=== PATIENT | male | born 1995 | race Caucasian/White ===

== ENCOUNTER 2018-06-06 09:48 | Emergency (ER) | payer OTHER ==
[2018-06-06 10:10] VITALS: BP 113/61
--- NOTE | 2018-06-06 12:27 | UC ---
Laceration HPI - HPI Summary HPI Summary: 22 y/o male presents to the urgent care c/o Rt ring finger laceration s/p weight lifting and dropping a 40lb weight on his finger yesterday around 1500pm yesterday. Pt reports pain is mild 2/10 w/ movement. Bleeding stopped w/ pressure yesterday. However his mother told him to come to the clinic since he probably need sutures. Pt can move finger w/o any difficulty. Pt is UTD w/ Tetanus vaccine. Pt denies numbness or tingling sensation over the hand or finger,fever, SOB, chest pain, abdominal pain, N/V/d. - History Of Current Complaint Chief Complaint: UCLaceration Stated Complaint: FINGER LAC Time Seen by Provider: 06/06/18 12:16 Hx Obtained From: Patient Laceration Location: Finger - RT ring finger Mechanism Of Injury: Sharp Trauma Onset/Duration: Sudden Onset, Lasting Hours - 12 hrs Severity: Mild Pain Intensity: 2 Pain Scale Used: 0-10 Numeric Aggravating Factors: Movement, Other: - touch Related History: Dominant Hand Right - Allergies/Home Medications Allergies/Adverse Reactions: Allergies Allergy/AdvReac Type Severity Reaction Status Date / Time No Known Allergies Allergy Verified 06/06/18 10:10 Home Medications: Home Medications NK [No Home Medications Reported] 06/06/18 [History Confirmed 06/06/18] PMH/Surg Hx/FS Hx/Imm Hx Previously Healthy: Yes - Pt denies PMHX - Surgical History Surgical History: Yes Surgery Procedure, Year, and Place: APPENDECTOMY - Family History Known Family History: Positive: None - Pt denies FmHX - Social History Occupation: Student Lives: With Family Alcohol Use: None Substance Use Type: None Smoking Status (MU): Never Smoked Tobacco - Immunization History Vaccination Up to Date: Yes Review of Systems All Other Systems Reviewed And Are Negative: Yes Constitutional: Positive: Negative Skin: Positive: Bruising - Rt ring finger, Other - laceration of Rt ring finger s/p a weight fell on his finger Eyes: Positive: Negative ENT: Positive: Negative Respiratory: Positive: Negative Cardiovascular: Positive: Negative Gastrointestinal: Positive: Negative Genitourinary: Positive: Negative Motor: Positive: Negative Neurovascular: Positive: Negative Musculoskeletal: Positive: Other: - Rt ring finger pain s/p laceration Neurological: Positive: Negative Psychological: Positive: Negative Is Patient Immunocompromised?: No Physical Exam - Summary Physical Exam Summary: Vital Signs Reviewed: Yes General: well developed, well nourished male sitting in the examining table w/o any apparent distress Eye Exam: Normal Eyes: Positive: Conjunctiva Clear - PERRLA, EOMI, fundi grossly normal ENT: Positive: Normal ENT inspection, Hearing grossly normal, Pharynx normal, TMs normal Neck: Positive: Supple, Nontender, No Lymphadenopathy Respiratory: Positive: Chest non-tender, Lungs clear, Normal breath sounds, No respiratory distress Cardiovascular: Positive: RRR, No Murmur, Pulses Normal, Brisk Capillary Refill Abdomen Description: Positive: Nontender, No Organomegaly, Soft. Negative: CVA Tenderness (R), CVA Tenderness (L) Bowel Sounds: Positive: Present Musculoskeletal: Positive: Strength Intact, ROM Intact, No Edema Neurological: Positive: Alert, Muscle Tone Normal Psychological Exam: Normal Skin: Positive:Medial aspect of the Rt 4th proximal phalanx with a linear superficial laceration about 1.8cm in size triangular in shape, bleeding, a black FB removed from the laceration. mild tenderness to palpation, mild ecchymosis around phalnx. FROM of RT hand and fingers, sensation intact, capillary refill brisk, and pulses WNL. Triage Information Reviewed: Yes Vital Signs: Initial Vital Signs Temp 98 F 06/06/18 10:08 Pulse 65 06/06/18 10:08 Resp 16 06/06/18 10:08 BP 113/61 06/06/18 10:08 Pulse Ox 100 06/06/18 10:08 Laceration Repair - Laceration Repair 1 Description: Irregular - laceration on the medial aspect of the Rt 4th phalanx triangular in shape Laceration Size After Repair: Length (cm) - 1.8 cm Modified For Repair: No Type Injection: Local Anesthesia Used: 1.0% Lido - Digital block at the base of the Rt 4th phalanx w / 2ml Cleansing Completed Via Routine Prep: Yes Irrigation With Pressure Irrigation Device: Yes Closure Method: Single Layer Suture Of: Skin, SQ Suture Type: Nylon Laceration Course/Dx - Course/Dx Course Of Treatment: 22 y/o male presents to the urgent care c/o Rt ring finger laceration s/p weight lifting and dropping a 40lb weight on his finger yesterday around 1500pm yesterday. Pt reports pain is mild 2/10 w/ movement. Bleeding stopped w/ pressure yesterday. However his mother told him to come to the clinic since he probably need sutures. Pt can move finger w/o any difficulty. Pt is UTD w/ Tetanus vaccine. Pt denies numbness or tingling sensation over the hand or finger,fever, SOB, chest pain, abdominal pain, N/V/ d. Hx obtained. Pt w/ Medial aspect of the Rt 4th proximal phalanx with a linear superficial laceration about 1.8cm in size triangular in shape, bleeding , a black FB removed from the laceration. Pt LACERATION PROCEDURE NOTE: . Copious irrigation was done with saline by the nurse and the wound explored. There was no FB or deep structure injury noted. FROM of left forearm. procedure was explained and consent obtained, Timeout performed. The wound was anesthetized by digital block at the base of Rt 4th phalanx with 2mL of 1% lido with good anesthesia. Sterile drape and prep were don. There were 5 sutures with 5.0 nylon type of suture. The length of the wound after closure was 1.8cm. No debridement done. Pt tolerated the procedure well without adverse effects. Neurovascular intact and FROM of Rt ring finger. Pt advised to f/u suture removal in 10-12 days and if any signs of infection develop to immediately return to the urgent care of PCP for further management and treatment. Pt understood and agreed and left the clinic ambulating A&Ox3. - Differential Dx - Laceration/Wound Differental Diagnoses: Abrasion, Avulsion, Foreign Body, Fracture, Laceration, Puncture Wound, Tendon Laceration - Diagnosis Provider Diagnosis: Laceration of right ring finger Discharge - Sign-Out/Discharge Documenting (check all that apply): Patient Departure - D/C home All imaging exams completed and their final reports reviewed: Yes - Discharge Plan Condition: Stable Disposition: HOME Patient Education Materials: Laceration (DC), Acute Wound Care (ED) Referrals: Gerri Ray MD [Primary Care Provider] - 1 Week Additional Instructions: 1-Please apply topical antibiotic over the wound. Keep wound clean and dry. FB was removed before laceration repair 2- F/u suture removal in 10-12 days w/ your PCP or here at the urgent care. 3-Take Ibuprofen or Tylenol PO q6-8hrs prn for pain or swelling. Keep hand elevated at times to avoid swelling 4- If you develop fever or redness around your finger despite the antibiotic please go to the ER immediately or return to the Urgent care. - Billing Disposition and Condition Condition: STABLE Disposition: Home
[2018-06-06] MEDS ORDERED: Lidocaine 1%* 5 ML VIAL INJ ONE (12:34)
== END 2018-06-06 13:56 | disposition home or self-care (01) ==
LOC: UCEAST 09:48
DX: S61.214A Laceration without foreign body of right ring finger without damage to nail, initial encounter (principal); W20.8XXA Other cause of strike by thrown, projected or falling object, initial encounter; Y92.9 Unspecified place or not applicable
CPT/HCPCS: 12001; 73140; 99211; G0463